=== PATIENT | female | born 1955 | race Caucasian/White ===

== ENCOUNTER 2017-02-13 06:24 | Emergency (ER) | payer OTHER ==
[~2017-02-13] VITALS: Ht 152.4 cm; Wt 43.0 kg
[~2017-02-13 06:24] MED LIST: MULT-1238 PO; OMEP20 PO; VITAD1000 PO
[2017-02-13] MEDS ORDERED: DEXTROSE 50%-WATER 25 GM/50 ML SYRINGE IVP ONE ×2 (06:29→07:15)
[2017-02-13 06:56] LABS: EOSINOPHILS % (AUTO) 0 % (1.0-6.0); HEMATOCRIT 37.4 % (36-46); HEMOGLOBIN 12.3 g/dL (12.0-16.0); LYMPHOCYTES # (AUTO) 0.4 K/uL (1.0-4.8); LYMPHOCYTES % (AUTO) 4.3 % (22.0-44.0); MEAN CORPUSCULAR HEMOGLOBIN 30.8 pg (26.0-34.0); MEAN CORPUSCULAR VOLUME 94 fL (80-100); MONOCYTES # (AUTO) 0.4 K/uL (0.1-1.0); NEUTROPHILS # (AUTO) 8.7 K/uL (1.8-7.7); PLATELET COUNT (AUTO) 305 K/uL (150-450); RED CELL DISTRIBUTION WIDTH 15.9 % (11.5-14.5); WHITE BLOOD COUNT (AUTO) 9.5 K/uL (4.5-11.0)
[2017-02-13] MEDS ORDERED: DEXTROSE 5%-0.9% SODIUM CHL 1,000 ML IV ONE (07:15)
[2017-02-13 07:24] LABS: B-TYPE NATRIURETIC PEPTIDE 163 pg/mL (0-100)
[2017-02-13 07:37] LABS: ALANINE AMINOTRANSFERASE 48 U/L (12-78); ALBUMIN 4.3 g/dL (3.4-5.0); ANION GAP 14 mmol/L (8-16); ASPARTATE AMINOTRANSFERASE 68 U/L (15-37); BILIRUBIN,TOTAL 0.4 mg/dL (0.1-1.0); CALCIUM, TOTAL 8.7 mg/dL (8.8-10.5); CARBON DIOXIDE 25 mmol/L (22-29); CHLORIDE 97 mmol/L (98-107); CREATINE KINASE MB 7.9 ng/mL (0-5); CREATINE KINASE, TOTAL 203 U/L (26-192); CREATININE 0.57 mg/dL (0.60-1.30); GLOMERULAR FILTR. RATE CALC > 60 mL/min (>60); SODIUM SERUM 136 mmol/L (136-145); TOTAL PROTEIN, SERUM 9.1 g/dL (6.4-8.2); UREA NITROGEN, BLOOD 6 mg/dL (7-18)
[2017-02-13 07:42] LABS: NEUTROPHILS % (AUTO) 91.7 % (40.0-70.0)
[2017-02-13 08:03] LABS: POTASSIUM 2.9 mmol/L (3.5-5.1)
[2017-02-13 08:03] LABS: GLUCOSE,POINT OF CARE 214 MG/DL (70-110)
[2017-02-13] MEDS ORDERED: BARIUM SULFATE 0.1% SUSPENSION 450 ML BOTTLE PO ONE (08:30)
[2017-02-13] MEDS: POTASSIUM CHL 10 MEQ/WATER 50 ML IV SCH ×4 (09:09→13:33)
[2017-02-13 09:22] LABS: GLUCOSE,POINT OF CARE 185 MG/DL (70-110)
[2017-02-13] MEDS ORDERED: IOVERSOL 350 MG/ML 100 ML VIAL ONE (09:27)
[2017-02-13] MEDS ORDERED: SODIUM CHLORIDE 0.9% 100 ML ONE (09:27)
[2017-02-13 10:16] LABS: GLUCOSE,POINT OF CARE 117 MG/DL (70-110)
[2017-02-13 11:37] LABS: GLUCOSE,POINT OF CARE 87 MG/DL (70-110)
[2017-02-13 12:32] LABS: GLUCOSE,POINT OF CARE 196 MG/DL (70-110)
[2017-02-13 13:47] LABS: GLUCOSE,POINT OF CARE 129 MG/DL (70-110)
[2017-02-13 14:51] LABS: GLUCOSE,POINT OF CARE 112 MG/DL (70-110)
[2017-02-13 15:20] VITALS: BP 142/87
== END 2017-02-13 15:21 | disposition home or self-care (01) ==
LOC: EMS 06:25
DX: E11.649 Type 2 diabetes mellitus with hypoglycemia without coma (principal); F10.20 Alcohol dependence, uncomplicated; I10 Essential (primary) hypertension; Y90.2 Blood alcohol level of 40-59 mg/100 ml; Z88.0 Allergy status to penicillin; Z88.6 Allergy status to analgesic agent
CPT/HCPCS: 36415; 74177; 80053; 82550; 82553; 82962; 83690; 83880; 84484; 85025; 93005; 96361; 96374; 99285; G0480; J3480; J7042; J7050; Q9967; Z7610